=== PATIENT | female | born 1975 | race Caucasian/White ===

== ENCOUNTER 2022-05-04 10:35 | Emergency (ER) | payer OTHER ==
[~2022-05-04] VITALS: Ht 172.7 cm; Wt 104.3 kg
[2022-05-04 10:35] VITALS: BP_SYST 151
--- NOTE | 2022-05-04 10:35 | NUR ---
BROUGHT IN BY [facility], PLACED IN BED #6 AND TRIAGED. REPORT GIVEN TO VIDHYA
--- NOTE | 2022-05-04 10:38 | NUR ---
ER at bedside examining patient.
[2022-05-04] MEDS ORDERED: MAGNESIUM SULFATE 50 ML IV ONE (10:45)
--- NOTE | 2022-05-04 12:20 | NUR ---
Karoline david in [facility] - 05/04/22 at [address]LEE BOO @1200 WITH PT
--- NOTE | 2022-05-04 12:20 | NUR ---
COVID AND FLU SENT TO LAB LABELED
[2022-05-04 12:42] VITALS: BP_SYST 138
[2022-05-04] MEDS ORDERED: PRED20TA PO (12:46)
--- NOTE | 2022-05-04 12:59 | NUR ---
Patient given written and verbal discharge instructions and verbalizes understanding. ER MD discussed with patient the results and treatment provided. Patient in stable condition. ID arm band removed. IV catheter removed intact and dressing applied, no active bleeding.Rx of prednisone given. Patient educated on pain management and to follow up with PMD. Opportunity for questions provided and answered.
== END 2022-05-04 12:59 | disposition home or self-care (01) ==
LOC: SED 10:35
DX: J98.01 Acute bronchospasm (principal); R05.9 Cough, unspecified; R06.2 Wheezing; Z79.899 Other long term (current) drug therapy; Z20.822 Contact with and (suspected) exposure to COVID-19
CPT/HCPCS: 99284; 96365; 71045; 87426; 36415; 87804 ×2; J3475